=== PATIENT | female | born 1990 ===

== ENCOUNTER 2020-10-20 11:10 | Outpatient (CLI) | payer OTHER, SELFPAY ==
--- NOTE | 2020-10-20 11:51 | MR_ITS ---
WS: [id number] MRI HEAD WITHOUT CONTRAST TECHNIQUE: Sagittal T1, T2 axial, T2 axial FLAIR, axial and coronal T1 images, axial susceptibility w eighted imaging, axial diffusion weighted images, and coronal T2 images were obtained. CLINICAL INFORMATION: HEADACHE, UNSPECIFIED COMPARISON: None. FINDINGS: No evidence of restricted diffusion to suggest acute ischemia. Ventricular system and basal cisterns are patent. Normal escalera-white differentiation. A few tiny foci of T2 hyperintensity in the periventri cular white matter of doubtful clinical significance. This can be seen with migraine headaches. Normal posterior fossa. Normal vascular flow voids at the skull base. No extra-axial fluid collection s. No evidence of mass or mass effect. Paranasal sinuses and mastoid air cells are well aerated. No h emosiderin on the susceptibly weighted images. Temporal lobes and hippocampal formations are normal i n appearance. MR/MR head wo con* [id number] IMPRESSION: 1. No evidence of restricted diffusion to suggest acute ischemia. 2. No suspicious intracranial signal abnormalities. 3. 2 or 3 tiny foci of T2 hyperintensity in the periventricular and subcortica l white matter of doubtful clinical significance but can be seen with migraine headaches. 4. Temporal lobes and hippocampal formations are normal in appearance. 5. No hemosiderin on susceptibly weighted images. 6. Paranasal sinuses and mastoid air cells are well aerated.
== END 2020-10-20 11:11 | disposition home or self-care (01) ==
LOC: RADWPI 11:15
PROVIDERS: Visit Provider Nurse Practitioner Family
DX: R51.9 Headache, unspecified (principal)
CPT/HCPCS: 70551

== ENCOUNTER 2023-09-26 18:58 | Emergency (ER) | payer OTHER, SELFPAY ==
[2023-09-26 19:15] VITALS: BP 163/105; PULSE 88; RESP 16; TEMP 36.7; O2SAT 98; BMI 27.3
--- NOTE | 2023-09-26 19:25 | W.ED.GENADLT ---
HPI - General Adult General: Chief complaint: General Medical Stated complaint: Swelling In Throat\Poss kidney Infections Time Seen by Provider: 09/26/23 20:14 History of Present Illness: 33-year-old female presents to the emergency department with concerns that she feels like something is caught in her throat. She states that she has been using menthol and menthol salicylate for her rib pain and thinks that she got on her hands and then touched her mouth and has been having throat problems since that time. She states that she is also received 2 separate injections of 10 mg of Decadron as well as a week long prescription of Decadron 4 mg and states that she also feels very dehydrated. She states she has noticed a white coating on her tongue as well and is concerned that that may be causing her throat difficulties. She denies fevers chills or night sweats at present. Review of Systems General: Reports: 10 or more systems reviewed and unremarkable except in HPI and below ENMT: Reports: throat pain, odynophagia and other (White coating on tongue) Physical Exam Narrative: EXAM NARRATIVE: Constitutional: the patient appears well nourished and of normal development. Vital signs as documented. No acute distress at present. Alert and oriented-to person, place, time and situation. Head, eyes, ears, nose, mouth, throat: Normocephalic, atraumatic. Pupils-equal, round, reactive to light. No scleral icterus. Normal-appearing external ears. Normal appearing nasal turbinates, no drainage. Oral thrush noted most likely secondary to prolonged steroid use, remainder of the posterior oropharynx without erythema or exudates. Neck: Supple, trachea is midline, no lymphadenopathy, no jugular venous distension, thyromegaly, or carotid bruits. Lungs: clear to auscultation to all lung mcconnell. Symmetrical rise and fall of chest, no obvious signs of increased work of breathing at present. Cardiac: Regular rate and rhythm, positive S1, S2. No murmurs, rubs or gallops that I can appreciate Abdomen: Soft, non-tender to palpation, normal active bowel sounds to all quadrants. No palpable masses, no organomegaly and abdominal bruits. Extremities: 2+ pulses in the upper extremities that are equal bilaterally, 2+ pulses in the lower extremities that are equal bilaterally. Non-edematous. Moves all extremities well, sensation to all extremities are noted. Skin: Warm, dry, intact. Course Vital Signs: Vital signs: Vital Signs Temperature 98.1 F 09/26/23 19:15 Pulse Rate 91 09/26/23 21:49 Respiratory Rate 16 09/26/23 19:15 Blood Pressure 133/92 09/26/23 21:49 Pulse Oximetry 98 09/26/23 21:49 Oxygen Delivery Me thod Room Air 09/26/23 21:49 MDM - General Adult Medical Decision Making Physical exam completed and documented I will obtain a strep screen, urinalysis, CBC and CMP and provide the patient p.o. nystatin for her oral thrush Differential Diagnosis Strep throat, candidiasis, UTI, Medical Records I reviewed the patient's medical records. Lab Data I reviewed the patient's lab results. 09/26/23 20:39 09/26/23 20:39 Laboratory Results WBC 6.84 10^3/uL (3.29-11.43) 09/26/23 20:39 RBC 4.75 10^6/uL (3.85-5.65) 09/26/23 20:39 Hgb 14.30 g/dL (11.27-16.99) 09/26/23 20:39 Hct 42.8 % (36-47) 09/26/23 20:39 MCV 90.1 fl (85-98) 09/26/23 20:39 MCH 30.1 pg (27-33) 09/26/23 20:39 MCHC 33.4 g/dL (30-55) 09/26/23 20:39 RDW 11.7 % (12.1-15.1) L 09/26/23 20:39 Plt Count 193 10^3/cmm (157-399) 09/26/23 20:39 MPV 13.9 fL (7.4-10.4) H 09/26/23 20:39 Neut % (Auto) 79.1 % 09/26/23 20:39 Lymph % (Auto) 16.1 % 09/26/23 20:39 Hart % (Auto) 4.2 % 09/26/23 20:39 Eos % (Auto) 0.0 % 09/26/23 20:39 Baso % (Auto) 0.3 % 09/26/23 20:39 Neut # (Auto) 5.41 10^3/uL (1.8-7.7) 09/26/23 20:39 Lymph # (Auto) 1.1 10^3/uL (0.8-4.8) 09/26/23 20:39 Hart # (Auto) 0.3 10^3/uL (0.2-0.9) 09/26/23 20:39 Eos # (Auto) 0.0 10^3/uL (0.0-0.8) 09/26/23 20:39 Baso # (Auto) 0.0 10^3/uL (0.0-0.1) 09/26/23 20:39 Nucleated RBC % (auto) 0 % 09/26/23 20:39 Nucleated RBCs # 0.0 /100WBC 09/26/23 20:39 Sodium 136 mmol/L (136-145) 09/26/23 20:39 Potassium 4.2 mmol/L (3.5-5.1) 09/26/23 20:39 Chloride 98 mmol/L (98-107) 09/26/23 20:39 Carbon Dioxide 21 mmol/L (22-29) L 09/26/23 20:39 Anion Gap 21.2 (5-19) H 09/26/23 20:39 BUN 14 mg/dL (6-20) 09/26/23 20:39 Creatinine 0.8 mg/dL (0.5-0.9) 09/26/23 20:39 GFR Calculation 82.6 mL/min (90-130) L 09/26/23 20:39 Glucose 102 mg/dL (65-115) 09/26/23 20:39 Calculated Osmolality 283 mOsm/kg (285-295) L 09/26/23 20:39 Calcium 9.9 mg/dL (8.5-10.5) 09/26/23 20:39 Total Bilirubin 0.6 mg/dL (0.15-1.2) 09/26/23 20:39 AST 28 U/L (0-32) 09/26/23 20:39 ALT 45 U/L (0-33) H 09/26/23 20:39 Alkaline Phosphatase 71 U/L (35-105) 09/26/23 20:39 Total Protein 9.2 g/dL (6.6-8.7) H 09/26/23 20:39 Albumin 5.1 g/dL (3.5-5.2) 09/26/23 20:39 Globulin 4.1 g/dL (1.3-4.6) 09/26/23 20:39 HCG, Qual Negative (Negative) 09/26/23 20:42 Urine Color Yellow (Yellow) 09/26/23 20:42 Urine Appearance Cloudy (CLEAR) A 09/26/23 20:42 Urine pH 6 (5-7) 09/26/23 20:42 Ur Specific [place] 1.020 (1.005-1.030) 09/26/23 20:42 Urine Protein Neg (Negative) 09/26/23 20:42 Urine Glucose (UA) Norm (Normal) 09/26/23 20:42 Urine Ketones 2+ (Negative) H 09/26/23 20:42 Urine Blood Neg (Negative) 09/26/23 20:42 Urine Nitrate Negative (Negative) 09/26/23 20:42 Urine Bilirubin Neg (Negative) 09/26/23 20:42 Urine Urobilinogen Norm mg/dL (Negative) 09/26/23 20:42 Ur Leukocyte Esterase 2+ (Negative) H 09/26/23 20:42 Urine RBC 0-4 /hpf (0-2) H 09/26/23 20:42 Urine WBC 15-25 /hpf (0-5) H 09/26/23 20:42 Ur Squamous Epith Cells 15-25 /hpf (0-5) H 09/26/23 20:42 Amorphous Sediment 1+ /hpf 09/26/23 20:42 Urine Bacteria 2+ /hpf (NONE) H 09/26/23 20:42 Hyaline Casts 0-4 /lpf H 09/26/23 20:42 Urine Mucus 2+ /hpf 09/26/23 20:42 Group A Strep Rapid Negative (Negative) 09/26/23 20:43 No radiology studies performed this visit Discharge Plan Discharge Patient Disposition: Home Clinical Impression: Candidiasis of mouth and esophagus, Dehydration UTI (urinary tract infection) Qualifiers: Urinary tract infection type: acute cystitis Hematuria presence: with hematuria Qualified Code(s): N30.01 - Acute cystitis with hematuria Condition: Stable Prescriptions: New nystatin 100,000 unit/mL suspension 5 ml PO QID 14 Days Qty: 280 0RF Rx Instructions: swish and swallow Macrobid 100 mg capsule 100 mg PO Q12H 7 Days Qty: 14 0RF Rx Instructions: must administer with a meal/food fluconazole 150 mg tablet 150 mg PO DAILY Qty: 1 1RF Rx Instructions: administer on day 1 of therapy Discharge Orders: Discharge ED (Routine); Ordered 09/26/23 Ordered By: Reddy Shannon Discharge Diet: Usual diet Discharge Activity: Resume usual activity Patient Instructions: Opioid Safety, Pain Management Activity Restrictions/Additional Instructions: Activity Restrictions/Additional Instructions: Thank you for choosing [facility] [place] for your healthcare needs today. Please realize that you were seen in the Emergency Department and that we are providing you with an emergency medical screening exam and this may not be a complete and all inclusive of all the testing and or medical work-up that you may need to determine your ailment or severity of your illness. It is very important that you follow-up as instructed with your Primary care provider or Specialist for additional evaluation and to discuss your medical treatment plan. You may return to the Emergency Department should you have concerns or if your condition changes or worsens in any way. 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
[2023-09-26 20:49] LABS: Basophils % 0.3 %; Hematocrit 42.8 % (36-47); Lymphocytes # 1.1 10^3/uL (0.8-4.8); Lymphocytes % 16.1 %; Mean Corpuscular HGB Conc 33.4 g/dL (30-55); Mean Corpuscular Hemoglobin 30.1 pg (27-33); Mean Corpuscular Volume 90.1 fl (85-98); Mean Platelet Volume 13.9 fL (7.4-10.4); Monocytes # 0.3 10^3/uL (0.2-0.9); Monocytes % 4.2 %; Neutrophils # 5.41 10^3/uL (1.8-7.7); Neutrophils % 79.1 %; Nucleated Red Blood Cells % 0 %; Platelet Count 193 10^3/cmm (157-399); Red Blood Count 4.75 10^6/uL (3.85-5.65); Red Cell Distribution Width 11.7 % (12.1-15.1); White Blood Count 6.84 10^3/uL (3.29-11.43)
[2023-09-26 20:58] LABS: Rapid Strep A Test Negative (Negative)
[2023-09-26 21:01] LABS: HCG Qualitative Urine. Negative (Negative)
[2023-09-26 21:06] LABS: Alanine Aminotransferase 45 U/L (0-33); Albumin Level 5.1 g/dL (3.5-5.2); Alkaline Phosphatase 71 U/L (35-105); Anion Gap 21.2 (5-19); Aspartate Amino Transferase 28 U/L (0-32); Blood Urea Nitrogen 14 mg/dL (6-20); Calcium 9.9 mg/dL (8.5-10.5); Carbon Dioxide 21 mmol/L (22-29); Chloride 98 mmol/L (98-107); Globulin 4.1 g/dL (1.3-4.6); Glomerular Filtration Rate 82.6 mL/min (90-130); Glucose 102 mg/dL (65-115); Osmolality Calculated 283 mOsm/kg (285-295); Potassium 4.2 mmol/L (3.5-5.1); Sodium 136 mmol/L (136-145); Total Bilirubin 0.6 mg/dL (0.15-1.2); Total Protein 9.2 g/dL (6.6-8.7)
[2023-09-26 21:07] LABS: Add Urine Microscopic? YES; Bilirubin Urine Neg (Negative); Blood Urine Neg (Negative); Glucose Urine UA Norm (Normal); Ketones Urine 2+ (Negative); Leukocyte Esterase Urine 2+ (Negative); Nitrate Urine Negative (Negative); Protein Urine Neg (Negative); Urine Appearance Cloudy (CLEAR); Urine Color Yellow (Yellow); Urobilinogen Urine Norm (Negative); pH Urine 6 (5-7)
[2023-09-26 21:08] LABS: Amorphous Sediment Urine 1+ /hpf; Bacteria Urine 2+ /hpf; Hyaline Casts Urine 0-4 /lpf; Mucus Urine 2+ /hpf; RBC Urine 0-4 /hpf (0-2); Squamous Epithelial Cell Urine 15-25 /hpf (0-5); WBC Urine 15-25 /hpf (0-5)
[2023-09-26 21:49] VITALS: BP 133/92; PULSE 91; O2SAT 98
[2023-09-26] MEDS: sodium chloride 0.9% 1,000 ML 999 ML IV (22:09)
[2023-09-26] MEDS: nystatin 100,000 unit/mL UDC 5 mL 500000 UNIT PO (22:09)
[2023-09-26 23:08] VITALS: BP 137/100; PULSE 82; O2SAT 99
[2023-09-26 23:09] VITALS: BP 137/100; PULSE 82; O2SAT 99
== END 2023-09-26 23:09 | disposition home or self-care (01) ==
PROVIDERS: Emergency Medicine; Emergency Provider Internal Medicine
DX: N30.01 Acute cystitis with hematuria (principal); B37.0 Candidal stomatitis; B37.81 Candidal esophagitis; E86.0 Dehydration
CPT/HCPCS: 80053; 81001; 81025; 85025; 87081; 87880; 99284; J7030

== ENCOUNTER 2023-09-27 16:12 | Emergency (ER) | payer OTHER, SELFPAY ==
[2023-09-27 16:24] VITALS: BP 104/73; PULSE 79; RESP 16; TEMP 36.9; O2SAT 98; BMI 27.4
--- NOTE | 2023-09-27 17:51 | W.ED.ALLEREA ---
HPI - Allergic Reaction General: Chief complaint: Allergic Reaction Stated complaint: sob, right side abd pain Time Seen by Provider: 09/27/23 17:23 History of Present Illness: HPI narrative: Presents to the ER with her main complaint being last night in this ER she was diagnosed with thrush and given nystatin swish and swallow to take. She took it last night without any complication. When she took it today it burned really bad and now she feels like she has a lump in her throat. She is afraid she is having a reaction to it. Patient was also prescribed Macrobid for urinary tract infection. Review of Systems General: Reports: 10 or more systems reviewed and unremarkable except in HPI and below Physical Exam Const: COMMON NORMALS: no acute distress, average body habitus, patient oriented x3, no limitations, healthy appearing, alert and well nourished HENMT: COMMON NORMALS: normocephalic, atraumatic, hearing grossly normal bilaterally, external ears normal, EAC's normal, TM's normal bilaterally, Normal external nose present and moist oral mucous membranes; oropharynx not normal (Positive white yeasty thrush and oral cavity) HEAD & SCALP: normocephalic and atraumatic NOSE: Normal external nose present EXTERNAL EAR: Yes external ears normal EXTERNAL AUDITORY CANAL: EAC's normal TYMPANIC MEMBRANE: TM's normal bilaterally Neck/C-Spine: COMMON NORMALS: full ROM, no lymphadenopathy, supple, no meningeal signs, no JVD and Thyroid normal THYROID: Thyroid normal Chest: COMMONS NORMALS: normal inspection of the chest and normal palpation of entire chest wall Resp: COMMON NORMALS: normal respiratory effort, No retractions, No use of accessory muscles and clear to auscultation bilaterally AUSCULTATION: clear to auscultation bilaterally Cardio: COMMON NORMALS: no JVD, regular rate, regular rhythm, S1 normal heart sound present, S2 normal heart sound present, No gallops present (Cardio), No clicks present (Cardio), No murmurs present (Cardio) and No rub (Cardio) RATE: regular rate RHYTHM: regular rhythm HEART SOUNDS: S1 normal heart sound present and S2 normal heart sound present GI: COMMON NORMALS: Normal to inspection, nondistended, normoactive bowel sounds present, Soft to palpation, non-tender, No hepatosplenomegaly present and no masses PALPATION: Yes Soft to palpation and Yes No hepatosplenomegaly present Neuro: COMMON NORMALS: patient oriented x3 SENSORIUM/ORIENTATION: Yes alert MENINGEAL SIGNS: Yes no meningeal signs Course Vital Signs: Vital signs: Vital Signs Temperature 98.5 F 09/27/23 18:09 Pulse Rate 79 09/27/23 18:09 Respiratory Rate 16 09/27/23 18:09 Blood Pressure 104/73 09/27/23 18:09 Pulse Oximetry 98 09/27/23 18:09 Oxygen Delivery Me thod Room Air 09/27/23 16:24 MDM - Allergic Reaction Medical Decision Making Patient may possibly have any reaction to the nystatin swish and swallow or this may have just irritated the already irritated oral mucosa from the thrush. Since there is no real way to test for this we will have her stop the nystatin swish and swallow and we will change her over to oral fluconazole. Patient should follow-up with her PCP for further evaluation testing as needed if patient continues to have oral pharyngeal issues that may benefit her to see an ENT and have a scope done. Differential Diagnosis Likely anaphylaxis, contact dermatitis and adverse reaction to drug; Unlikely allergic reaction, angioedema, viral enanthem or urticaria Medical Records I reviewed the patient's medical records. Lab Data I reviewed the patient's lab results. No radiology studies performed this visit Discharge Plan Discharge Patient Disposition: Home Clinical Impression: Candidiasis of mouth and esophagus, Adverse reaction to drug Condition: Stable Prescriptions: New fluconazole 200 mg tablet 200 mg PO DAILY Qty: 7 0RF No Action nystatin 100,000 unit/mL suspension 5 ml PO QID 14 Days Qty: 280 0RF Rx Instructions: swish and swallow Macrobid 100 mg capsule 100 mg PO Q12H 7 Days Qty: 14 0RF Rx Instructions: must administer with a meal/food fluconazole 150 mg tablet 150 mg PO DAILY Qty: 1 1RF Rx Instructions: administer on day 1 of therapy Discharge Orders: Discharge ED (Routine); Ordered 09/27/23 Ordered By: Keaton King Patient Instructions: Thrush - Adult Activity Restrictions/Additional Instructions: Please stop the nystatin swish and swallow as you may be having a reaction with this or it may be irritating your already irritated oral mucosa from the thrush. Please start using the fluconazole tablets. Please follow-up with your family practice physician within the next 7 days for further evaluation and treatment. If your symptoms worsen please feel free to return to the ER. 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
[2023-09-27 18:09] VITALS: BP 104/73; PULSE 79; RESP 16; TEMP 36.9; O2SAT 98
== END 2023-09-27 18:10 | disposition home or self-care (01) ==
PROVIDERS: Emergency Provider Emergency Medicine
DX: B37.0 Candidal stomatitis (principal); B37.81 Candidal esophagitis; T36.7X5A Adverse effect of antifungal antibiotics, systemically used, initial encounter
CPT/HCPCS: 99283